=== PATIENT | female | born 1995 | race Caucasian/White ===

== ENCOUNTER 2018-08-11 16:07 | Emergency (ER) | payer OTHER | END 2018-08-11 20:49 | disposition home or self-care (01) | LOC: NAV ERS 16:07 | DX: S21.212A Laceration without foreign body of left back wall of thorax without penetration into thoracic cavity, initial encounter (principal); S21.211A Laceration without foreign body of right back wall of thorax without penetration into thoracic cavity, initial encounter; W26.8XXA Contact with other sharp object(s), not elsewhere classified, initial encounter | CPT/HCPCS: 99282 ==

== ENCOUNTER 2018-11-11 04:06 | Emergency (ER) | payer OTHER ==
[2018-11-11 04:23] LABS: Bilirubin Negative (Negative); Blood, Urine Moderate (Negative); Clarity Clear (Clear); Glucose, Urine (Dipstick) Negative (Negative); Leukocyte Trace (Negative); Nitrite Positive (Negative); Protein, Urine (Dipstick) Negative (Neg-Trace); Urobilinogen 0.2 mg/dL (0.2-1.0)
[2018-11-11 04:29] LABS: Squamous Epithelial 0-3 HPF (0-3)
[2018-11-11 04:30] LABS: Bacteria/HPF Rare-Few HPF (None Seen)
[2018-11-11] MEDS ORDERED: Nitrofurantoin Macrocrystal 50 MG CAP ONE (04:46)
== END 2018-11-11 04:50 | disposition home or self-care (01) ==
LOC: NAV ERS 04:06
DX: N30.01 Acute cystitis with hematuria (principal); D50.9 Iron deficiency anemia, unspecified
CPT/HCPCS: 81003; 81015; 99283

== ENCOUNTER 2019-09-27 21:04 | Emergency (ER) | payer OTHER | END 2019-09-27 21:55 | disposition home or self-care (01) | LOC: NAV ERS 21:04 | DX: O99.512 Diseases of the respiratory system complicating pregnancy, second trimester (principal); J06.9 Acute upper respiratory infection, unspecified; O99.012 Anemia complicating pregnancy, second trimester; D50.9 Iron deficiency anemia, unspecified; Z79.899 Other long term (current) drug therapy | CPT/HCPCS: 87804 ==

== ENCOUNTER → 2019-11-05 | Emergency (ER) | payer OTHER ==
[~2019-11-05] MED LIST: Cephalexin 250 MG CAP ONE
[2019-11-05 18:53] LABS: Bilirubin Negative (Negative); Blood, Urine Large (Negative); Glucose, Urine (Dipstick) Negative (Negative); Leukocyte Trace (Negative); Nitrite Negative (Negative); Protein, Urine (Dipstick) 100 mg/dL (Neg-Trace); Urobilinogen 0.2 mg/dL (Less than 2)
[2019-11-05 19:03] LABS: Clarity SL HAZY (Clear)
[2019-11-05 19:06] LABS: Squamous Epithelial 0-3 HPF (0-3)
[2019-11-05 19:07] LABS: Bacteria/HPF Rare-Few HPF (None Seen)
== END ==
LOC: NAV ERS 18:28
DX: O23.42 Unspecified infection of urinary tract in pregnancy, second trimester (principal); O46.92 Antepartum hemorrhage, unspecified, second trimester; O99.012 Anemia complicating pregnancy, second trimester; D50.9 Iron deficiency anemia, unspecified; Z79.899 Other long term (current) drug therapy; Z3A.25 25 weeks gestation of pregnancy
CPT/HCPCS: 81003; 81015; 87086